=== PATIENT | female | born 1935 | race Caucasian/White ===

== ENCOUNTER → 2016-12-21 | Outpatient (CLI) | payer MEDICARE, BC | LOC: MC.RAD 07:20 | DX: Z12.31 Encounter for screening mammogram for malignant neoplasm of breast (principal) ==

== ENCOUNTER → 2018-01-19 | Outpatient (CLI) | payer MEDICARE, BC | LOC: MC.RAD 07:38 | DX: Z12.31 Encounter for screening mammogram for malignant neoplasm of breast (principal) ==

== ENCOUNTER → 2019-01-23 | Outpatient (CLI) | payer MEDICARE, BC | LOC: MC.RAD 08:24 | DX: Z12.31 Encounter for screening mammogram for malignant neoplasm of breast (principal) ==

== ENCOUNTER 2019-04-11 05:51 | Inpatient (IN) | payer MEDICARE, BC ==
[2019-04-11] VITALS (210 sets, daily range): BP systolic 102–146; BP diastolic 68–97; PULSE 64–95; TEMP 97.5–98.4; O2SAT 79–99
[~2019-04-11] VITALS: Ht 160 cm; Wt 73.9 kg
[2019-04-11 06:30] LABS: BASO # 0.1 (0.0-0.2); BASO % 0.6 % (0.0-2.0); EOS # 0.2 (0.0-0.7); GRAN % 58.7 % (42.2-75.2); HEMATOCRIT 40.6 % (37.0-47.0); HEMOGLOBIN 13.1 g/dl (12.5-16.0); LYMPH # 2.8 (1.2-3.4); LYMPH % 27.5 % (20.0-51.0); MEAN CELL VOLUME 93 fl (80.0-100.0); MEAN CORPUSCULAR HEMOGLOBIN 30 pg (27.0-31.0); MEAN CORPUSCULAR HGB CONC 32 g/dl (33.0-37.0); MEAN PLATELET VOLUME 11.2 fl (7.4-10.4); MONO # 1.1 (0.1-0.6); MONO % 10.9 % (1.7-9.3); PLATELET COUNT 346 K/mm3 (130-400); RED BLOOD COUNT 4.35 M/mm3 (4.10-5.30); REDCELL DISTRIBUTION WIDTH-CV 13.8 % (11.5-14.5)
[2019-04-11 06:36] LABS: ALANINE AMINOTRANSFERASE 42 U/L (9-52); ALBUMIN 4.2 gm/dL (3.5-5.0); ALKALINE PHOSPHATASE 63 U/L (50-136); ANION GAP 12 mmol/L (7-16); AST,SGOT 39 U/L (15-37); BILIRUBIN,TOTAL 0.7 mg/dL (0.0-1.0); BLOOD UREA NITROGEN 22 mg/dL (7-17); CALCIUM 10.2 mg/dL (8.4-10.2); CARBON DIOXIDE 24 mmol/L (22-30); CHLORIDE 106 mmol/L (98-107); GLUCOSE 118 mg/dL (74-106); LIPASE 225 U/L (23-300); POTASSIUM 3.7 mmol/L (3.4-5.0); SODIUM 142 mmol/L (137-145); TOTAL PROTEIN 7.8 gm/dL (6.4-8.2)
[2019-04-11] MEDS ORDERED: OSCAL 500 TAB500 MG PO (06:41)
[2019-04-11] MEDS ORDERED: VITAMIN D 1001000 IU PO (06:41)
[2019-04-11 06:42] LABS: INR 1.1 (0.8-3.0); PROTHROMBIN TIME 12.5 SECONDS (9.7-12.8)
[2019-04-11] MEDS ORDERED: MAXZIDE 50 MG-71 TAB PO (06:42)
[2019-04-11] MEDS ORDERED: TYLENOL 500MG500 MG PO (06:42)
[2019-04-11] MEDS ORDERED: CLARITIN 1010 MG/TAB PO (06:42)
[2019-04-11] MEDS ORDERED: MOBIC15 MG PO (06:42)
[2019-04-11] MEDS ORDERED: MOTRIN 400400 MG/TAB PO (06:43)
[2019-04-11] MEDS ORDERED: IMODIUM 2MG CAPS2 MG PO (06:43)
[2019-04-11 06:57] LABS: TROPONIN-I < 0.012 ng/mL (0.000-0.035)
--- NOTE | 2019-04-11 09:29 | NUR ---
Transferred from ER by cart. Alert and oriented, denies pain at this time . HR 114 resting in bed, O2 87% placed on 2 liters O2 by nasal cannua and O2 not 93 %. @0 gauge IV to right AC with Cardizem at 20 ml/hr. Lungs CTA bilat. Bowel sounds x4. Daughter bedside
--- NOTE | 2019-04-11 13:32 | NUR ---
Assumed care of patient, report recieved from Aarti Honeycutt RN. Dr. Stapleton at bedside at this time for consult
--- NOTE | 2019-04-11 14:35 | NUR ---
1435 Time out for DI/CV done at this time. Dr. Stapleton at bedside, as well as MAT MACHINE TENDER and [employer]. 1436 Procedure start time 1443 Defib x1 with [address] Stapleton 1444 CM shows SR at this time, will verify with EKG 1455 Procedure end time. Report recieved from MAT MACHINE TENDER. Patient resting quietly with eyes closed. Arouses when name called. CM continues to show SR.
--- NOTE | 2019-04-11 19:15 | NUR ---
Recieved bedside report from MARY Spear. Daughter at bedside. No concerns at this time.
--- NOTE | 2019-04-11 19:15 | NUR ---
Report given to Hanna HERNANDEZ. Sitting up on side of bed visiting with ty. Denies needs at this time.
[2019-04-12] VITALS (632 sets, daily range): BP systolic 98–133; BP diastolic 65–97; PULSE 61–155; TEMP 97.6–98.6; O2SAT 72–100
--- NOTE | 2019-04-12 00:45 | NUR ---
Assisted to detach from monitors to use the bathroom. After getting back to bed requested to be able to "sit up". Moved bed into sitting position. Will continue to monitor.
--- NOTE | 2019-04-12 04:33 | NUR ---
Assisted up to bathroom. Requested to sit in recliner at this time. No other concerns or complaints reported.
[2019-04-12 06:27] LABS: BASO % 0.5 % (0.0-2.0); EOS # 0.1 (0.0-0.7); EOS % 0.8 % (0-4.0); GRAN # 5.2 (1.4-6.5); GRAN % 69.2 % (42.2-75.2); HEMOGLOBIN 11.6 g/dl (12.5-16.0); LYMPH # 1.4 (1.2-3.4); MEAN CELL VOLUME 92 fl (80.0-100.0); MEAN CORPUSCULAR HEMOGLOBIN 30 pg (27.0-31.0); MEAN CORPUSCULAR HGB CONC 33 g/dl (33.0-37.0); MEAN PLATELET VOLUME 11.6 fl (7.4-10.4); MONO # 0.8 (0.1-0.6); MONO % 10.2 % (1.7-9.3); PLATELET COUNT 295 K/mm3 (130-400); RED BLOOD COUNT 3.88 M/mm3 (4.10-5.30); REDCELL DISTRIBUTION WIDTH-CV 13.7 % (11.5-14.5)
[2019-04-12 06:30] LABS: HEMATOCRIT 35.7 % (37.0-47.0)
[2019-04-12 06:39] LABS: CREATININE, serum 0.81 (0.52-1.25); MAGNESIUM 1.4 mg/dL (1.6-2.3); POTASSIUM 3.3 mmol/L (3.4-5.0)
--- NOTE | 2019-04-12 07:10 | NUR ---
Bedside report given to MARY Garza and MARY Boo. Patient care transfered.
--- NOTE | 2019-04-12 07:30 | NUR ---
BEDSIDE REPORT RECEIVED FROM MARY GUTIERREZ. PATIENT STATES SHE WAS NOT ABLE TO SLEEP WELL DUE TO UNCOMFORTABLE BED AND CHAIR. INFUSIONS REVIEWED, CARE TAKEN OVER AT THIS TIME.
--- NOTE | 2019-04-12 11:25 | NUR ---
First visit from the systems coordinator. No needs right now.
--- NOTE | 2019-04-12 12:00 | NUR ---
PATIENT SITTING UP AT BEDSIDE, STATES SHE DOESN'T REALLY LIKE WHAT WAS OFFERED FOR NOON MEAL BUT DOESN'T WANT ANYTHING ELSE. PLEASANT AND COOPERATIVE, REQUESTING TO GET "UNTIED" IF POSSIBLE, DENIES PAIN OR DISCOMFORT AT THIS TIME.
--- NOTE | 2019-04-12 14:09 | NUR ---
PATIENT FEELING "JUMPY" AND "NOT MYSELF". PLACED ON TELE BOX AND AMBULATED IN ABREU WITH [id number] OF 1 AND FAMILY PUSHING WHEELCHAIR. TOLERATED WELL, STATES IS "TIRED" SO CAN'T WALK FAR.
--- NOTE | 2019-04-12 14:56 | NUR ---
REPORT CALLED TO MARY ADAM AT 1453, PATIENT TRANSFERRED TO NEW UNIT VIA WHEELCHAIR WITH PERSONAL BELONGINGS AND IN THE COMPANY OF DAUGHTER-TOLERATED WELL AT THIS TIME.
--- NOTE | 2019-04-12 16:29 | NUR ---
Pt arrived into room 310 at this time. She is sitting in the chair upon entry, she is very fidgety. Pt states she is nausceous and feels like her skin is crawling and she is having anxiety. EDYTA Zaman notified, order for Ativan and Zofran given. Dr. Castillo's office called and verified allergies with nurse. Vitals attained and WNL, no changes on telemetry. Pt placed on 2L O2 via NC for comfort. No pain reported. HR irregular. BLE edema 2+. Lungs CTA, RLL diminished. IV to RAC intact. POC discussed with patient and her daughter. No needs at this time. Call light within reach.
--- NOTE | 2019-04-12 18:57 | NUR ---
Pt was up to the floor for a short period of time. Remained anxious while upstairs. Denied any pain, palpitations or SOB. Reported nausea, she states PRN Zofran did not help. After dry heaving telemetry did report patient was back in Afib with RVR, confirmed with EKG. Dr. Reyes notified and new orders were given. During this episode of Afib patient's oxygen level dropped and required 6L O2 via OM. Update given to patient and patient's daughter. Report called to ICU and patient wheeled downstairs.
--- NOTE | 2019-04-12 19:00 | NUR ---
Received report from Ema and MARY Garza.
--- NOTE | 2019-04-12 19:26 | NUR ---
PATIENT ARRIVED TO ICU ROOM #1 VIA BED AND 2 STAFF MEMBERS AT 1845, TRANSFERRED TO ICU BED WITH ASSISTANCE OF 3, REPORT RECEIVED FROM MARY ADAM AT 1836. PATIENT VERY ANXIOUS, STATES SHE DOESN'T FEEL LIKE SHE IS GETTING ANY AIR, FAMILY AT BEDSIDE SHORTLY AFTER ARRIVAL. PATIENT ON OXYMASK AT THIS TIME.
--- NOTE | 2019-04-12 19:29 | NUR ---
REPORT GIVEN TO MARY WING. CARE TRANSFERRED AT THIS TIME.
[2019-04-12 19:40] LABS: BASO % 0.3 % (0.0-2.0); EOS % 0.2 % (0-4.0); GRAN # 8.6 (1.4-6.5); GRAN % 80.6 % (42.2-75.2); HEMOGLOBIN 12.6 g/dl (12.5-16.0); LYMPH # 1.2 (1.2-3.4); LYMPH % 11.4 % (20.0-51.0); MEAN CELL VOLUME 93 fl (80.0-100.0); MEAN CORPUSCULAR HEMOGLOBIN 29 pg (27.0-31.0); MEAN CORPUSCULAR HGB CONC 32 g/dl (33.0-37.0); MEAN PLATELET VOLUME 10.9 fl (7.4-10.4); MONO # 0.8 (0.1-0.6); MONO % 7.2 % (1.7-9.3); PLATELET COUNT 328 K/mm3 (130-400); RED BLOOD COUNT 4.29 M/mm3 (4.10-5.30); REDCELL DISTRIBUTION WIDTH-CV 13.8 % (11.5-14.5)
[2019-04-12 19:56] LABS: MAGNESIUM 2.4 mg/dL (1.6-2.3); POTASSIUM 4.3 mmol/L (3.4-5.0)
--- NOTE | 2019-04-12 20:00 | NUR ---
Dr. Arechiga notified approximately 1999 of patient's sustained HR above 130. Received orders to increase patient's upper alarm limit to 150 and continue to monitor throughout the night. Patient to be further assessed by physician in the morning.
[2019-04-12 22:02] LABS: ARTERIAL BLD GAS O2 SATURATION 93.9 % (92-100); ARTERIAL BLD GAS TCO2 CT 18.7; ARTERIAL BLOOD GAS BASE EXCESS -5.3 (-2-2); ARTERIAL BLOOD GAS HCO3 17.9 meq/L (22-26); ARTERIAL BLOOD GAS PCO2 28.5 mmHg (35-45); ARTERIAL BLOOD GAS PO2 69.7 mmHg (80-100); ARTERIAL BLOOD GAS pH 7.42 (7.35-7.45)
[2019-04-13] VITALS (121 sets, daily range): BP systolic 82–113; BP diastolic 65–85; PULSE 91–125; TEMP 97.9–98.1; O2SAT 91–100
[2019-04-13 01:13] LABS: ARTERIAL BLD GAS O2 SATURATION 94.6 % (92-100); ARTERIAL BLD GAS TCO2 CT 24.3; ARTERIAL BLOOD GAS BASE EXCESS 0.4 (-2-2); ARTERIAL BLOOD GAS HCO3 23.3 meq/L (22-26); ARTERIAL BLOOD GAS PCO2 32.3 mmHg (35-45); ARTERIAL BLOOD GAS PO2 70.9 mmHg (80-100); ARTERIAL BLOOD GAS pH 7.48 (7.35-7.45)
--- NOTE | 2019-04-13 02:58 | NUR ---
Received orders at 2301 from [facility] for Sodium Bicarb 50 MEQ IV once now to address patient's metabolic acidosis as evidenced by previous ABG. Also received orders to administer Amiodarone 150 mg IV 20 minutes following bicarb administration. At this time, it was thought patient was IMCU status. Dr. Sellers was notified of orders from [facility]. Dr. Sellers ordered that patient be made ICU status and to follow [facility] orders. Upon attempt to administer medications, patient became increasingly confused and was refusing medication. Patient stated, "the medication was wrong," and insisted she speak with her daughter before proceeding. Patient's daughter Socorro was notified and arrived at the bedside within 10-15 minutes. Even with daughter present, patient continued to refuse medications and became more confused. Daughter eventually convinced patient to accept amiodarone medication, as she was already taking the medication orally. Amiodarone was initiated at 0027, 11 mLs were administered before patient slouched to one side of bed and became unresponsive. Amio was stopped and charge nurse, scalehouse attendant, and [facility] were promptly alerted. Other than an elevated HR, patient's vitals remained within normal limits. [facility] requested a glucose finger stick, which resulted as 172. Bicarb was then administered per [facility]'s direction. At 0050, received orders from [facility] for a repeat ABG to be drawn 20 minutes from bicarb administration. Daughter made a comment that patient was prone to UTIs. No previous UAs were on file, so [facility] ordered a straight cath for UA and culture at 0058. UA was obtained and sent to the lab. Dr. Sellers was notified of patient's progression at approx 0145. Dr. Sellers ordered a stat head CT without contrast as well as a chest CT with and without contrast. Patient soon became more alert. She was opening eyes spontaneously and pulling at monitoring equipment, stating, "I need to go." Patient was alert to location and time of day, however, was still exhibiting confused behavior. machining supervisor was notified of pending CT scan, and transferred patient for imaging. Patient returned to unit at approx. 0245 and was resting quietly. [facility] notified and updated of patient's progression. It was clarified with [facility] to continue to hold amiodarone at this time. Patient is currently resting quietly in bed, vitals are stable, and patient denies any discomfort. Will continue to monitor.
[2019-04-13 03:09] LABS: COLLECTION METHOD CATHETER
[2019-04-13 03:18] LABS: HYALINE CAST >12 /lpf; PH 6 (5-8); SQUAMOUS EPITHELIAL None Seen /hpf; URINE APPEARANCE Clear; URINE BACTERIA None Seen /hpf; URINE BILIRUBIN Negative (NEGATIVE); URINE BLOOD Negative (NEGATIVE); URINE COLOR Yellow; URINE GLUCOSE Negative (NEGATIVE); URINE KETONE Negative (NEGATIVE); URINE LEUKOCYTE ESTERASE Negative (NEGATIVE); URINE NITRATE Negative (NEGATIVE); URINE PROTEIN(semi-quant) Negative (NEGATIVE); URINE RBC 0-2 /hpf; URINE UROBILINOGEN Negative (NEGATIVE)
[2019-04-13 05:51] LABS: BASO % 0.4 % (0.0-2.0); EOS % 0.1 % (0-4.0); GRAN # 5.4 (1.4-6.5); GRAN % 67.4 % (42.2-75.2); HEMOGLOBIN 11.5 g/dl (12.5-16.0); LYMPH # 1.9 (1.2-3.4); MEAN CELL VOLUME 90 fl (80.0-100.0); MEAN CORPUSCULAR HEMOGLOBIN 30 pg (27.0-31.0); MEAN CORPUSCULAR HGB CONC 33 g/dl (33.0-37.0); MEAN PLATELET VOLUME 11.4 fl (7.4-10.4); MONO # 0.7 (0.1-0.6); MONO % 8.7 % (1.7-9.3); PLATELET COUNT 263 K/mm3 (130-400); RED BLOOD COUNT 3.86 M/mm3 (4.10-5.30); REDCELL DISTRIBUTION WIDTH-CV 13.5 % (11.5-14.5)
[2019-04-13 05:56] LABS: HEMATOCRIT 34.9 % (37.0-47.0)
[2019-04-13 05:59] LABS: CALCIUM 8.6 mg/dL (8.4-10.2); CREATININE, serum 0.85 (0.52-1.25); POTASSIUM 3.4 mmol/L (3.4-5.0)
[2019-04-13 06:16] LABS: TROPONIN-I 0.816 ng/mL (0.000-0.035)
--- NOTE | 2019-04-13 07:51 | NUR ---
Patient has a Complete PFT ordered talked with nurse this am and other RT, and they did not feel she would be able to perform PFT due to events that occurd through the night.
--- NOTE | 2019-04-13 07:56 | NUR ---
Report given to MARY Up.
--- NOTE | 2019-04-13 08:00 | NUR ---
PT BP LOW THIS AM, DR VILLALPANDO CONTACTED. PT ALERT AND ORIENTED X4 AND DENIES PAIN.
[2019-04-13 11:07] LABS: PLEURAL FLUID RBC 0 /mm3 (0-0); PLEURAL FLUID WBC 469 /mm3
[2019-04-13 11:13] LABS: PLEURAL FLUID COLOR YELLOW
[2019-04-13 11:32] LABS: GLUCOSE,PLEURAL FLUID 115 mg/dL
[2019-04-13 11:33] LABS: TOTAL PROTEIN,PLEURAL FLUID < 2.0 gm/dL
--- NOTE | 2019-04-13 12:19 | NUR ---
PT LEFT WITH [facility] VIA STRETCHER.
--- NOTE | 2019-04-13 12:31 | NUR ---
REPORT GIVEN TO MARY LOPEZ AT [facility]. EMS IN ROUTE TO FACILITY.
[2019-04-13 13:32] LABS: PLEURAL FLUID APPEARANCE CLEAR
== END 2019-04-13 12:19 | disposition short-term general hospital (02) | DRG 280 ==
LOC: COL.ER 05:51 → ICU 07:02 → MEDICAL 04-12 15:39 → ICU 04-12 18:53
PROVIDERS: Anesthesiology Critical Care Medicine; Emergency Medicine; Hospitalist; Internal Medicine Pulmonary Disease; Nurse Practitioner Family; ADMIT Internal Medicine
PROC: 5A2204Z Restoration of Cardiac Rhythm, Single (ICD-10-PCS; principal; 2019-04-11)
PROC: 0W993ZZ Drainage of Right Pleural Cavity, Percutaneous Approach (ICD-10-PCS; 2019-04-13)
DX: I48.91 Unspecified atrial fibrillation (principal); J18.9 Pneumonia, unspecified organism; I21.A1 Myocardial infarction type 2; J96.01 Acute respiratory failure with hypoxia; J90 Pleural effusion, not elsewhere classified; I10 Essential (primary) hypertension; K21.9 Gastro-esophageal reflux disease without esophagitis; M85.80 Other specified disorders of bone density and structure, unspecified site; I83.90 Asymptomatic varicose veins of unspecified lower extremity; F41.9 Anxiety disorder, unspecified; M19.90 Unspecified osteoarthritis, unspecified site; I48.92 Unspecified atrial flutter; E83.42 Hypomagnesemia; E87.6 Hypokalemia; I95.9 Hypotension, unspecified; Z90.710 Acquired absence of both cervix and uterus; Z88.5 Allergy status to narcotic agent; Z88.0 Allergy status to penicillin; Z88.8 Allergy status to other drugs, medicaments and biological substances
CPT/HCPCS: 99222-AI; 99231-AI; 99232-AI; A4216; J0282; J0696; J1940; J2405; J2704; J3475; J7030; J7040; J7060; Q9967

== ENCOUNTER 2019-05-03 15:00 | Outpatient (RCR) | payer MEDICARE, BC ==
[2019-04-21 10:15] VITALS: BP 99/62; PULSE 56; TEMP 98.1
[2019-04-22 10:01] VITALS: BP 115/77; PULSE 113; TEMP 98
[2019-04-23 09:59] VITALS: BP 118/75; PULSE 105; TEMP 98.2
[2019-04-23 10:08] LABS: CALCIUM 8.8 mg/dL (8.4-10.2); CREATININE, serum 0.64 (0.52-1.25); POTASSIUM 4.1 mmol/L (3.4-5.0)
--- NOTE | 2019-04-24 09:45 | NUR ---
patient in the express unit. Patient is receiving IV antibiotics. Patient had a midline placement Lar[place]ie. Dressing dated 04/21. No signs or symptoms of IV complications noted. Chlorhexidine impregnated disc present. The plan is for the dressing to be changed on Tuesday. No concerns voiced. We will continue to monitor.
[2019-04-24 09:58] VITALS: BP 104/83; PULSE 112; TEMP 97.9
[2019-04-25 10:03] VITALS: BP 107/65; PULSE 99; TEMP 97.8
[2019-04-26 09:47] VITALS: BP 111/64; PULSE 72; TEMP 97.3
--- NOTE | 2019-04-27 09:30 | NUR ---
midline intact intact at right antecubital area. With sterile technique right arm midline dressing change done with insertion site cleansed with ChloraPrep 1, chlorhexidine impregnated disc applied, skin prep, StatLock, and Tegaderm applied. No signs or symptoms of IV complications noted. No concerns voiced. Arm wrapped with Jovan to protect catheter.
[2019-04-27 09:48] LABS: HEMOGLOBIN 10.7 g/dl (12.5-16.0); MEAN CELL VOLUME 94 fl (80.0-100.0); MEAN CORPUSCULAR HEMOGLOBIN 30 pg (27.0-31.0); MEAN CORPUSCULAR HGB CONC 32 g/dl (33.0-37.0); MEAN PLATELET VOLUME 10.3 fl (7.4-10.4); PLATELET COUNT 319 K/mm3 (130-400); RED BLOOD COUNT 3.59 M/mm3 (4.10-5.30); REDCELL DISTRIBUTION WIDTH-CV 15.6 % (11.5-14.5)
[2019-04-27 09:50] LABS: HEMATOCRIT 33.9 % (37.0-47.0)
[2019-04-27 10:08] LABS: ALANINE AMINOTRANSFERASE 53 U/L (9-52); ALBUMIN 3.4 gm/dL (3.5-5.0); ALKALINE PHOSPHATASE 47 U/L (50-136); ANION GAP 7 mmol/L (7-16); AST,SGOT 29 U/L (15-37); BILIRUBIN,TOTAL 0.3 mg/dL (0.0-1.0); BLOOD UREA NITROGEN 23 mg/dL (7-17); CALCIUM 8.5 mg/dL (8.4-10.2); CARBON DIOXIDE 28 mmol/L (22-30); CHLORIDE 108 mmol/L (98-107); CREATININE, serum 0.66 (0.52-1.25); GLUCOSE 79 mg/dL (74-106); POTASSIUM 3.5 mmol/L (3.4-5.0); SODIUM 142 mmol/L (137-145); TOTAL PROTEIN 6.6 gm/dL (6.4-8.2)
[2019-04-27 10:09] LABS: C-REACTIVE PROTEIN < 0.5 mg/dL (0.0-0.9)
[2019-04-27 10:28] VITALS: BP 109/65; PULSE 57; TEMP 97.5
[2019-04-28 08:56] VITALS: BP 104/58; PULSE 104; TEMP 98
[~2019-05-03] VITALS: Ht 160 cm; Wt 76.2 kg
[2019-05-03 14:35] VITALS: BP 117/73; PULSE 110; TEMP 97.8
[~2019-05-03 15:00] MED LIST: ASPIRIN E.C. 8181 MG PO; CLARITIN 1010 MG/TAB PO; CORDARONE200 MG/TAB PO; ELIQUIS 5MG PO; IMODIUM 2MG CAPS2 MG PO; LASIX 20MG TABL20 MG PO; MAXZIDE 50 MG-71 TAB PO; MOBIC15 MG PO; MOTRIN 400400 MG/TAB PO; OSCAL 500 TAB500 MG PO; TOPROL XL 25MG25 MG PO; TYLENOL 500MG500 MG PO; VITAMIN D 1001000 IU PO; XANAX .25M0.25 MG/TA PO
== END 2019-05-03 15:02 | disposition home or self-care (01) ==
LOC: EUO 15:00
PROVIDERS: Internal Medicine; Internal Medicine Cardiovascular Disease
DX: J18.9 Pneumonia, unspecified organism (principal); R78.81 Bacteremia; Z79.2 Long term (current) use of antibiotics
CPT/HCPCS: J0696

== ENCOUNTER 2021-10-27 15:10 | Emergency (ER) | payer MEDICARE, BC ==
[~2021-10-27] VITALS: Ht 157.5 cm; Wt 68.2 kg
[2021-10-27 15:23] VITALS: TEMP 98.3
[2021-10-27 17:40] LABS: BASO % 0.4 % (0.0-2.0); EOS # 0.1 K/mm3 (0.0-0.7); EOS % 1.2 % (0.0-4.0); GRAN # 6.5 K/mm3 (1.4-6.5); GRAN % 75.5 % (42.2-75.2); HEMATOCRIT 37.5 % (37.0-47.0); HEMOGLOBIN 12.3 g/dl (12.5-16.0); LYMPH # 1.1 K/mm3 (1.2-3.4); LYMPH % 12.5 % (20.0-51.0); MEAN CELL VOLUME 86 fl (80.0-100.0); MEAN CORPUSCULAR HEMOGLOBIN 28 pg (27-31); MEAN CORPUSCULAR HGB CONC 33 g/dl (33.0-37.0); MEAN PLATELET VOLUME 10.6 fl (7.4-10.4); MONO # 0.9 K/mm3 (0.1-0.6); MONO % 10.2 % (1.7-9.3); PLATELET COUNT 277 K/mm3 (130-400); RED BLOOD COUNT 4.34 M/mm3 (4.10-5.30); REDCELL DISTRIBUTION WIDTH-CV 15.9 % (11.5-14.5)
[2021-10-27 17:53] LABS: INR 1.7 (0.8-3.0); PROTHROMBIN TIME 19.9 SECONDS (9.7-12.8)
[2021-10-27 18:14] LABS: ALBUMIN 3.4 gm/dL (3.4-4.8); BILIRUBIN,TOTAL 0.5 mg/dL (0.2-1.2); CALCIUM 8.7 mg/dL (8.4-10.2); CREATININE, serum 0.87 mg/dL (0.57-1.11); POTASSIUM 3.9 mmol/L (3.5-4.5); TOTAL PROTEIN 6.9 gm/dL (6.2-8.1)
[2021-10-27 18:20] VITALS: BP 141/71; PULSE 64
== END 2021-10-27 18:20 | disposition short-term general hospital (02) ==
LOC: COL.ER 15:10
PROVIDERS: Emergency Medicine
DX: S06.6X9A Traumatic subarachnoid hemorrhage with loss of consciousness of unspecified duration, initial encounter (principal); S00.83XA Contusion of other part of head, initial encounter; Z79.01 Long term (current) use of anticoagulants; W01.198A Fall on same level from slipping, tripping and stumbling with subsequent striking against other object, initial encounter
CPT/HCPCS: J7168

== ENCOUNTER 2021-12-03 08:59 | Day surgery (SDC) | payer MEDICARE, BC ==
[~2021-12-03] VITALS: Ht 157.6 cm; Wt 71.5 kg
[2021-12-03] VITALS (10 sets, daily range): BP systolic 117–164; BP diastolic 53–94; PULSE 57–95; TEMP 97.7–98.5
[2021-12-03] MEDS ORDERED: PEPCID AC 10MG10 MG PO (09:24)
[2021-12-03] MEDS ORDERED: ALLEGRA 180MG180 MG PO (09:25)
[2021-12-03] MEDS ORDERED: MAXZIDE 50 MG-71 TAB PO (09:26)
[2021-12-03] MEDS ORDERED: K-TAB10 PO (09:26)
[2021-12-03] MEDS ORDERED: VITAMIN D31000 I1 PO (09:27)
[2021-12-03 10:43] LABS: INR 1.1 (0.8-3.0); PROTHROMBIN TIME 12.2 SECONDS (9.7-12.8)
[2021-12-03 10:46] LABS: HEMATOCRIT 37.2 % (37.0-47.0); HEMOGLOBIN 11.7 g/dl (12.5-16.0); MEAN CELL VOLUME 89 fl (80.0-100.0); MEAN CORPUSCULAR HEMOGLOBIN 28 pg (27-31); MEAN CORPUSCULAR HGB CONC 32 g/dl (33.0-37.0); MEAN PLATELET VOLUME 10.5 fl (7.4-10.4); PLATELET COUNT 295 K/mm3 (130-400); REDCELL DISTRIBUTION WIDTH-CV 15.8 % (11.5-14.5)
[2021-12-03 10:51] LABS: CREATININE, serum 0.82 mg/dL (0.57-1.11); POTASSIUM 3.8 mmol/L (3.5-4.5)
--- NOTE | 2021-12-03 12:11 | NUR ---
See merge for all medication, assessment, intervention, and vital sign times.
--- NOTE | 2021-12-03 13:40 | NUR ---
arrived to room from cath laboratory technician per cart, alert and oriented, INT but no IV fluids infusing, dressing to left upper chest with gauze CD&I, sling in place to left arm, assisted up to bathroom and voided qs, then to bed, denies pain
--- NOTE | 2021-12-03 14:00 | NUR ---
resting in bed, given water at this time
--- NOTE | 2021-12-03 14:15 | NUR ---
taking sips of water and tolerates well
--- NOTE | 2021-12-03 15:00 | NUR ---
resting in bed, full assessment completed, see interventions for further info, denies needs,
--- NOTE | 2021-12-03 16:39 | NUR ---
resting in bed visiting with augusta, dressing is CD&I to left upper chest, c/o discomfort only 2/10 but otherwise denies pain or needs, they have ordered her supper
--- NOTE | 2021-12-03 19:06 | NUR ---
bedside shift reort given to Nhi RN
--- NOTE | 2021-12-03 20:00 | NUR ---
PT IN BED, HAS SLING TO LEFT ARM, INT TO LFA. DRSG TO LEFT CHEST D/I. DOES NOT WANT THE ICE PACK ON THE SITE. IS ALERT AND ORIENTED X4. ASSISTED TO BATHROOM, STEADY GAIT, VOIDS AND BACK TO BED.
--- NOTE | 2021-12-03 21:33 | NUR ---
PT MEDICATED WITH HS MEDS INCLUDING ES TYLENOL 1000MG PO FOR GENERAL DISCOMFORT. INT FLUSHED TO LFA, NO REDNESS OR SWELLING. ASSISTED TO BATHROOM, VOIDS AND BACK TO BED. SLING REMAINS ON LEFT ARM.
[2021-12-04 04:45] VITALS: BP 145/60; PULSE 60; TEMP 97.7
--- NOTE | 2021-12-04 06:00 | NUR ---
DOWNLOAD ON PACER SUBMITTED. PT HAS BEEN NPO SINCE MIDNIGHT. DOES NOT WANT ICE ON PACER SITE.
[2021-12-04 06:28] LABS: BASO % 0.4 % (0.0-2.0); EOS # 0.1 K/mm3 (0.0-0.7); EOS % 1.3 % (0.0-4.0); GRAN # 4.7 K/mm3 (1.4-6.5); GRAN % 66.6 % (42.2-75.2); HEMOGLOBIN 11.1 g/dl (12.5-16.0); LYMPH # 1.2 K/mm3 (1.2-3.4); LYMPH % 17.5 % (20.0-51.0); MEAN CELL VOLUME 85 fl (80.0-100.0); MEAN CORPUSCULAR HEMOGLOBIN 28 pg (27-31); MEAN CORPUSCULAR HGB CONC 33 g/dl (33.0-37.0); MEAN PLATELET VOLUME 10.8 fl (7.4-10.4); MONO % 14.1 % (1.7-9.3); PLATELET COUNT 258 K/mm3 (130-400); RED BLOOD COUNT 4.01 M/mm3 (4.10-5.30); REDCELL DISTRIBUTION WIDTH-CV 15.4 % (11.5-14.5)
[2021-12-04 06:32] LABS: HEMATOCRIT 34.2 % (37.0-47.0)
--- NOTE | 2021-12-04 06:46 | NUR ---
awake resting in bed, bedside shift report received from MARY Hankins
[2021-12-04 07:02] LABS: CALCIUM 8.6 mg/dL (8.4-10.2); CREATININE, serum 0.72 mg/dL (0.57-1.11); MAGNESIUM 1.6 mg/dL (1.6-2.6); POTASSIUM 3.4 mmol/L (3.5-4.5)
[2021-12-04 07:09] VITALS: BP 127/64; PULSE 98; TEMP 98.3
--- NOTE | 2021-12-04 09:09 | NUR ---
family in to visit, Dr Daly's nurse paged to ask about NPO status, has not returned call, full assessment completed, see interventions for further info, medicated with tylenol 1000mg for c/os discomfort to left upper chest
--- NOTE | 2021-12-04 10:29 | NUR ---
Initial visit; Patient doing well, her daughter and grand-daughter are with her for support. Evelia thanked Senior Policy Advisor for looking in on her and offering God's blessings.
--- NOTE | 2021-12-04 10:38 | NUR ---
visiting with family, informed spoke with Dr Stapleton and needs to continue NPO at this time
--- NOTE | 2021-12-04 11:08 | NUR ---
Dr Stapleton in to see patient
[2021-12-04 11:41] VITALS: BP 151/54; PULSE 57; TEMP 97.8
--- NOTE | 2021-12-04 11:42 | NUR ---
let her and family know the Dr has not placed order for discharge yet
[2021-12-04] MEDS ORDERED: CLEOCIN HC150 MG/CAP PO (12:58)
--- NOTE | 2021-12-04 13:07 | NUR ---
bedside shift report given to MARY Crooks
--- NOTE | 2021-12-04 13:36 | NUR ---
Reviewed discharge instructions with pt and family. Incision well approximated with steristrips intact. No redness or drainage noted. INT removed from left forearm, pt escorted out
--- NOTE | 2021-12-04 14:22 | NUR ---
SW met with patient to complete intake and discuss discharge plan. Patient lives at home alone in [place]. Patient's daughter Socorro ([phone]) present at bedside. Patient is independent with her ADL's and will utilizes a walking stick when she go out in her yard. Patient has no home oxygen needs. PCP is Dr. Castillo and she utilizes [facility] for perscription needs. Patient reports that she does not have a DPOA-HC established. She states that she has the paperwork at home but hasn't filled it out yet. She is not and has two children, Socorro and another daughter who lives in [place]. Patient does not have HH services established at this time and does not wish to establish any. Discharge plan: Home
== END 2021-12-04 13:37 | disposition home or self-care (01) ==
LOC: COL.CAR 08:59 → SURG 09:00 → COL.CAR 15:25 → SURG 15:25 → COL.CAR 12-04 13:37 → SURG 12-04 13:37
PROVIDERS: Internal Medicine Cardiovascular Disease
DX: I49.5 Sick sinus syndrome (principal); I48.91 Unspecified atrial fibrillation
CPT/HCPCS: OP; J0690; J2250; J3010; J7040; Q9967